=== PATIENT | male | born 1940 | race Caucasian/White ===

== ENCOUNTER → 2022-08-31 | Outpatient (REF) | payer MEDICARE, OTHER, SELFPAY ==
[2022-08-31 08:15] LABS: Absolute Lymphocyte Count 1.82 X10^3/uL (0.83-4.51); Absolute Neutrophil Count 4.8 X10^3/uL (2.0-7.7); Basophil# 0.05 X10^3/uL; Basophil% 0.6 % (0-1); Eosinophil# 0.41 X10^3/uL; Hematocrit 39.9 % (40-54); Hemoglobin 12.6 g/dL (13.0-16.5); Lymphocyte # 1.82 X10^3/ul (0.83-4.51); Lymphocyte % 22.3 % (19-41); Mean Corp Hgb Conc 31.6 g/dL (32-36); Mean Corpuscular Hgb 29.2 pg (27.0-32.0); Mean Corpuscular Volume 92.6 fL (80-94); Mean Platelet Vol. 9.3 fl (6.2-12.0); Monocyte# 1.11 X10^3/uL; Monocyte% 13.6 % (0-10); NRBC Flagged by Analyzer 0 % (0-5); Neutrophil # 4.76 X10^3/uL (2.7-7.7); Neutrophil % 58.3 % (47-70); Platelet Count 279 K/mm3 (150-450); RBC Distribution Width CV 14.7 % (11.6-14.6); RBC Distribution Width SD 50.2 fl (35.1-43.9); Red Blood Count 4.31 M/mm3 (4.6-6.2); White Blood Count 8.2 K/mm3 (4.4-11.0)
[2022-08-31 08:23] LABS: Anion Gap 6 (5-15); BUN 14 mg/dL (7-18); BUN/Creat Ratio 19.7 RATIO (10-20); Calcium,Total 8.8 mg/dL (8.5-10.1); Chloride 109 mmol/L (98-107); Creatinine, Serum 0.71 mg/dL (0.70-1.30); EST Glomerular Filtration Rate 113 mL/min (>60); Est Glom Filt Rate - Afr Amer 137 mL/min (>60); Glucose 82 mg/dL (74-106); Potassium 3.8 mmol/L (3.5-5.1); Sodium Level 141 mmol/L (136-145)
== END ==
LOC: OLS.WHLCAR 05:00
PROVIDERS: Visit Provider Internal Medicine
DX: R53.83 Other fatigue (principal); M62.82 Rhabdomyolysis; N17.9 Acute kidney failure, unspecified; M62.81 Muscle weakness (generalized); R26.2 Difficulty in walking, not elsewhere classified; R27.8 Other lack of coordination; Z74.1 Need for assistance with personal care
CPT/HCPCS: 36415; 80048; 85025

== ENCOUNTER → 2022-09-05 | Outpatient (REF) | payer MEDICARE, OTHER, SELFPAY ==
[2022-09-05 10:34] LABS: Bacteria 0 SEEN /hpf (None Seen); Mucous, Urine 0 SEEN /hpf (<or=2+); Red Blood Cells-Urine 0 SEEN /hpf (0-5); Squamous Epithelial Cells - UA 0 SEEN /hpf (0-5); White Blood Cells 0 SEEN /hpf (0-5)
[2022-09-05 11:02] LABS: Color, Urine Yellow (Yellow); Glucose, Dipstick Normal (Normal); Ketone-Dipstick 5 mg/dl (Negative); Leukocyte Esterase-Dipstick Negative /ul (Negative); Nitrite-Dipstick Negative (Negative); Occult Blood-Urine 25 /ul (Negative); Protein-Dipstick Negative (Negative); Urine Bilirubin Dipstick Negative (Negative); Urine Clarity Clear (Clear); Urine Urobilinogen Normal (Normal); Urine pH 6.5 (5.0 - 8.0)
== END ==
LOC: OLS.WHLCAR 05:00
PROVIDERS: Visit Provider Internal Medicine
DX: R33.9 Retention of urine, unspecified (principal); M62.82 Rhabdomyolysis; F03.92 Unspecified dementia, unspecified severity, with psychotic disturbance; R53.83 Other fatigue; M62.81 Muscle weakness (generalized); R26.2 Difficulty in walking, not elsewhere classified; R27.8 Other lack of coordination
CPT/HCPCS: 81001; 87086

== ENCOUNTER 2022-09-06 16:32 | Emergency (ER) | payer MEDICARE, OTHER, SELFPAY ==
[2022-09-06 16:33] VITALS: BP 144/77; PULSE 108; RESP 16; TEMP 36.4; O2SAT 96; BMI 36.9
--- NOTE | 2022-09-06 16:40 | RAD_ITS ---
STUDY: X-RAY - LEFT KNEE REASON FOR EXAM: Male, 81 years old. INJURY TECHNIQUE: 3 view(s) of the knee. COMPARISON: None. FINDINGS: Knee prosthesis is noted which appears stable in anatomic alignment and position. No evidence for acute fracture. No definitive evidence for loosening. RAD/Knee 3 Views IMPRESSION: Stable appearance to knee prosthesis Electronically Signed: Daniel Hernandez MD at 17:10 EST ,
--- NOTE | 2022-09-06 16:42 | EDS_ITS ---
HPI History of Present Illness Chief Complaint: Lower Extremity Injury Narrative Narrative: 81-year-old male presents via EMS with left knee pain. He has past medical history of left total knee arthroplasty. He states he cannot bend his left knee because of pain. He states his pain started 2 days ago. He denies any fall, however EMS states that he is having pain in his left knee secondary to a fall today. He states he took Tylenol earlier. He denies other injury. No hitting of his head or loss of consciousness. He states he has been getting around with the use of a cane. [facility] Social History Smoking Status: Unknown if ever smoked ROS ROS ED ROS Narrative Constitutional: No fever, no chills. HEENT: No sore throat. No neck pain. No loss of vision. No rhinorrhea. Cardiovascular: No chest pain. No palpitations. No pedal edema. Respiratory: No cough, no shortness of breath. Abdominal: No abdominal pain. No nausea. No vomiting. Genitourinary: No dysuria. No hematuria. Musculoskeletal: No myalgias. Left knee pain. Worse with movement. Neurologic: No headaches. No dizziness. No lightheadedness. Skin: No rash. No change in color. Psychiatric: No depression. No anxiety. EXAM Physical Exam Narrative Exam Narrative: Afebrile. Vital signs noted. HEENT: Normocephalic. Atraumatic. PERRL, EOMI. Neck soft and supple. No point tenderness or step off. Cardiovascular: Regular rate and rhythm. No murmurs, rubs, or gallops appreciated. Respiratory: No tachypnea. Lungs clear to auscultation bilaterally. Gastrointestinal: Abdomen soft, nontender, with normoactive bowel sounds. No rebound or guarding. Neurological: Awake. Alert. Nonfocal, nonlateralizing. Skin: No rash. Normal color. No pallor. Musculoskeletal: No pedal edema. Limited range of motion left knee, limited flexion extension secondary to pain. Mild tenderness to palpation below grady lla. No overt swelling or erythema. Neurovascular intact distally with palpable dorsalis pedis pulse. Const Vital Signs: 09/06/22 16:33 Temperature 97.6 F L Temperature Source Temporal Pulse Rate 108 H Respiratory Rate 16 Blood Pressure 144/77 H Blood Pressure Mean 99 Pulse Ox 96 Oxygen Delivery Method Room Air MDM MDM MDM Narrative Medical decision making narrative: Patient given a [place] tablet for analgesia. X-rays were obtained of the left knee and 4 views. I interpreted his x-ray and I see no evidence of periprosthetic fracture, no evidence of loosening of his hardware. At this point in time, he will be placed in an Iron wrap. He will continue his cane use at home. I feel he can be discharged safely home with follow-up. Return instructions reviewed. Disposition is discharged home in stable condition. Radiography Diagnostic Testing: Clinical Impression(s) from Imaging Studies Knee X-Ray 09/06/22 16:40 IMPRESSION: Stable appearance to knee prosthesis Electronically Signed: Daniel Hernandez MD at 17:10 EST Reading Location ID and State: [address] [place] [address] , Service support , Discharge Plan Triage Chief Complaint: Lower Extremity Injury ED Provider: Danilo Garza Dx/Rx/DC Orders Clinical Impression: Fall, Contusion of knee, left Instructions: ED Contusion, Lower Extremity, ED Fall with Uncertain Cause Primary Care Provider: Jacki Cazares Referrals: Jacki Cazares MD [Primary Care Provider] - As soon as possible Disposition Disposition: Home, Self Care
[2022-09-06] MEDS: HYDROcodone Bitartrate/Apap 5/325 Tablet PO (17:12)
== END 2022-09-06 18:23 | disposition home or self-care (01) ==
PROVIDERS: Emergency Provider Emergency Medicine; PCP Internal Medicine; Visit Provider Emergency Medicine
DX: S80.02XA Contusion of left knee, initial encounter (principal); X58.XXXA Exposure to other specified factors, initial encounter; Z96.652 Presence of left artificial knee joint
CPT/HCPCS: 73562; 99284

== ENCOUNTER → 2022-09-07 | Outpatient (REF) | payer MEDICARE, OTHER, SELFPAY ==
[2022-09-07 07:52] LABS: Absolute Lymphocyte Count 1.37 X10^3/uL (0.83-4.51); Absolute Neutrophil Count 6.3 X10^3/uL (2.0-7.7); Basophil# 0.05 X10^3/uL; Basophil% 0.5 % (0-1); Eosinophil# 0.41 X10^3/uL; Eosinophils% 4.3 % (0-5); Hematocrit 37.1 % (40-54); Hemoglobin 12.3 g/dL (13.0-16.5); Lymphocyte # 1.37 X10^3/ul (0.83-4.51); Lymphocyte % 14.4 % (19-41); Mean Corp Hgb Conc 33.2 g/dL (32-36); Mean Corpuscular Volume 90.5 fL (80-94); Mean Platelet Vol. 8.9 fl (6.2-12.0); Monocyte# 1.31 X10^3/uL; Monocyte% 13.8 % (0-10); NRBC Flagged by Analyzer 0 % (0-5); Neutrophil # 6.32 X10^3/uL (2.7-7.7); Neutrophil % 66.5 % (47-70); Platelet Count 290 K/mm3 (150-450); RBC Distribution Width SD 50.4 fl (35.1-43.9); White Blood Count 9.5 K/mm3 (4.4-11.0)
[2022-09-07 08:14] LABS: Anion Gap 9 (5-15); BUN 15 mg/dL (7-18); BUN/Creat Ratio 21.2 RATIO (10-20); Calcium,Total 8.4 mg/dL (8.5-10.1); Chloride 106 mmol/L (98-107); Creatinine, Serum 0.71 mg/dL (0.70-1.30); EST Glomerular Filtration Rate 114 mL/min (>60); Est Glom Filt Rate - Afr Amer 138 mL/min (>60); Glucose 106 mg/dL (74-106); Potassium 3.4 mmol/L (3.5-5.1); Sodium Level 138 mmol/L (136-145)
== END ==
LOC: OLS.WHLCAR 05:00
PROVIDERS: PCP Internal Medicine; Visit Provider Internal Medicine
DX: R53.83 Other fatigue (principal); F03.92 Unspecified dementia, unspecified severity, with psychotic disturbance; M62.81 Muscle weakness (generalized); R26.2 Difficulty in walking, not elsewhere classified; R27.8 Other lack of coordination
CPT/HCPCS: 36415; 80048; 85025